=== PATIENT | female | born 1970 | race African-American/Black ===

== ENCOUNTER 2019-04-27 08:09 | Emergency (ER) | payer SELFPAY ==
[~2019-04-27] VITALS: Ht 152.4 cm; Wt 136.0 kg
[~2019-04-27 08:09] MED LIST: ALBU6.7H9
[2019-04-27] MEDS ORDERED: PREDNISONE 20MG TABLET PO ONE (08:45)
[2019-04-27] MEDS ORDERED: FAMOTIDINE 20MG TABLET PO ONE (08:45)
[2019-04-27] MEDS ORDERED: ALBUTEROL (0.083%) 2.5MG/3ML NEB HHN ONE (08:45)
[2019-04-27 09:42] VITALS: BP 148/76
== END 2019-04-27 09:46 | disposition home or self-care (01) ==
LOC: ER 08:09
DX: T78.40XA Allergy, unspecified, initial encounter (principal); X58.XXXA Exposure to other specified factors, initial encounter; J45.909 Unspecified asthma, uncomplicated; I10 Essential (primary) hypertension
CPT/HCPCS: 94640; 99283; J7512; J7611; Z7610

== ENCOUNTER 2020-10-25 16:54 | Emergency (ER) | payer OTHER ==
[~2020-10-25] VITALS: Ht 152.4 cm; Wt 136.0 kg
[2020-10-25] MEDS ORDERED: IBUPROFEN 600MG TABLET PO STA (17:29)
[2020-10-25] MEDS ORDERED: LORAZEPAM 0.5MG TABLET PO ONE (17:30)
[2020-10-25 19:59] VITALS: BP 161/68
== END 2020-10-25 19:49 | disposition home or self-care (01) ==
LOC: ER 16:54
DX: M79.605 Pain in left leg (principal); M79.604 Pain in right leg; I10 Essential (primary) hypertension; J45.909 Unspecified asthma, uncomplicated; Z98.890 Other specified postprocedural states
CPT/HCPCS: 93005; 93970; 99284

== ENCOUNTER 2024-11-13 14:02 | Emergency (ER) | payer BC, MEDICAID, OTHER ==
[~2024-11-13] VITALS: Ht 152.4 cm; Wt 136.0 kg
[~2024-11-13 14:02] MED LIST changes: +ALBU6.7H3; -ALBU6.7H9
[2024-11-13 14:08] VITALS: O2SAT 99
[2024-11-13] MEDS: LORAZEPAM 1MG TABLET PO ONE (15:26)
[2024-11-13 15:45] LABS: BASOPHILS % 0.5 % (0.0-2.0); EOSINOPHILS % 0.9 % (0.0-5.0); HEMATOCRIT. 41.8 % (36.0-48.0); HEMOGLOBIN. 13.8 g/dL (12.0-16.0); LYMPHOCYTES % 12.8 % (20.0-50.0); MEAN CORPUSCULAR HEMOGLOBIN 27.1 pg (28.0-32.0); MEAN CORPUSCULAR HGB CONC 33.1 g/dL (31.0-37.0); MEAN CORPUSCULAR VOLUME 81.7 fL (81.0-99.0); MEAN PLATELET VOLUME 9.4 fl (7.4-10.4); MONOCYTES % 8.8 % (2.0-8.0); PLATELET 239 x1000/uL (130-400); RED BLOOD CELL COUNT 5.11 mill/uL (4.2-5.4); RED CELL DISTRIBUTION WIDTH 14.4 % (11.6-14.6); WHITE BLOOD COUNT 9.7 x1000/uL (4.5-11.0)
[2024-11-13 15:52] LABS: CHLORIDE 103 mEq/L (98-107); POTASSIUM 3.5 mEq/L (3.5-5.1); SODIUM 141 mEq/L (136-145)
[2024-11-13 15:53] LABS: CALCIUM 9.4 mg/dL (8.7-10.4); CARBON DIOXIDE 29 mEq/L (21-32)
[2024-11-13 15:58] LABS: CREATININE 0.8 mg/dL (0.6-1.0); GLUCOSE 124 mg/dL (70-105); UREA NITROGEN BLOOD 10 mg/dL (9-23)
[2024-11-13 15:59] LABS: TROPONIN I HIGH SENSITIVITY < 4 ng/L (3.0-34)
[2024-11-13 16:00] LABS: ALANINE AMINOTRANSFERASE 14 IU/L (10-49); ASPARTATE AMINOTRANSFERASE 12 IU/L (<34); BILIRUBIN DIRECT 0.1 mg/dL (<=3.0); BILIRUBIN TOTAL 0.4 mg/dL (0.1-1.0); PROTEIN TOTAL 7.1 g/dL (6.0-8.3)
[2024-11-13 16:03] LABS: CLARITY URINE CLEAR (CLEAR); GLUCOSE URINE NEGATIVE (NEGATIVE); KETONES URINE NEGATIVE (NEGATIVE); LEUKOCYTE ESTERASE URINE NEGATIVE (NEGATIVE); NITRITE URINE NEGATIVE (NEGATIVE); OCCULT BLOOD URINE TRACE (NEGATIVE); PROTEIN URINE NEGATIVE (NEGATIVE); SPECIFIC GRAVITY URINE 1.012 (1.005-1.030); UROBILINOGEN URINE 0.2 E.U./dL (0.2-1.0)
[2024-11-13 16:30] LABS: COLOR URINE STRAW (YELLOW)
[2024-11-13 16:32] LABS: RBC URINE NONE SEEN /hpf (0-2); WBC URINE 0-2 /hpf (0-2)
[2024-11-13 16:33] LABS: BACTERIA URINE TRACE; SQUAMOUS EPITHELIAL CELL URINE RARE /lpf (RARE/1+)
[2024-11-13] MEDS ORDERED: AMOX-494 MT (17:30)
[2024-11-13] MEDS ORDERED: LORA-250 MT (17:30)
[2024-11-13 17:48] VITALS: BP 113/52; PULSE 72; RESP 16; TEMP 36.7; O2SAT 99
== END 2024-11-13 17:49 | disposition home or self-care (01) ==
LOC: ER 14:02
DX: F41.9 Anxiety disorder, unspecified (principal); J18.8 Other pneumonia, unspecified organism; I10 Essential (primary) hypertension; J45.909 Unspecified asthma, uncomplicated
CPT/HCPCS: 36415; 71045; 80048; 80076; 81003; 84484; 85025; 93005; 99285